=== PATIENT | male | born 1985 | race Native Hawaiian/Other Pacific Islander ===

== ENCOUNTER 2017-09-02 09:51 | Day surgery (SDC) | payer OTHER ==
[2017-09-02] MEDS ORDERED: Propofol 10 mg/ml Inj (20 ML) ONE (12:15)
[2017-09-02] MEDS ORDERED: Lactated Ringer's 1,000 ML IV ONE (12:15)
[2017-09-02 14:08] VITALS: BP 112/72; PULSE 76; RESP 18; TEMP 97.2; O2SAT 100
== END 2017-09-02 14:00 | disposition home or self-care (01) ==
LOC: C.ENDO 09:51
PROVIDERS: ATTEND Internal Medicine Gastroenterology
DX: K29.50 Unspecified chronic gastritis without bleeding (principal); R10.11 Right upper quadrant pain; B96.81 Helicobacter pylori [H. pylori] as the cause of diseases classified elsewhere
CPT/HCPCS: 43239; 88305; J2001; J2704; J7120